=== PATIENT | female | born 1995 | race Caucasian/White ===

== ENCOUNTER 2019-12-25 08:29 | Outpatient (CLI) | payer BC ==
[2019-12-25] MEDS ORDERED: None at this Time (16:15)
[2019-12-29] MEDS ORDERED: FENTANYL PF 100 MCG/2ML ONE (11:56)
[2019-12-29] MEDS ORDERED: MIDAZOLAM 1 MG/ML, 2ML ONE (11:57)
== END 2019-12-25 23:59 | disposition home or self-care (01) ==
LOC: STAR 08:29
PROVIDERS: ATTEND Orthopaedic Surgery
DX: Z02.9 Encounter for administrative examinations, unspecified (principal)

== ENCOUNTER 2019-12-29 11:15 | Day surgery (SDC) | payer BC ==
[~2019-12-29] VITALS: Ht 167.6 cm; Wt 92.4 kg
[~2019-12-29 11:15] MED LIST: None at this Time
[2019-12-29] MEDS ORDERED: LACTATED RINGERS 1,000 ML IV SCH (11:42)
[2019-12-29] MEDS ORDERED: HYDR-3240 PO (11:47)
[2019-12-29] MEDS ORDERED: IBUPROFEN PO (11:47)
[2019-12-29] MEDS ORDERED: CHLORHEXIDINE 15 ML UDC MM ONE (12:00)
[2019-12-29 12:23] LABS: HCG UR SG 1.019 (1.003-1.030)
[2019-12-29] MEDS ORDERED: ROCURONIUM 10 MG/ML,10ML ONE (12:56)
[2019-12-29] MEDS ORDERED: SUCCINYLCHOLINE 20 MG/ML, 10ML ONE (12:56)
[2019-12-29] MEDS ORDERED: BUPIVACAINE/PF 0.5% ONE ×2 (13:15→14:17)
[2019-12-29] MEDS ORDERED: LIDOCAINE 1%, 20ML ONE (13:15)
[2019-12-29] MEDS ORDERED: CEFAZOLIN 1,000 MG ONE (14:17)
[2019-12-29] MEDS ORDERED: ONDANSETRON 2MG/ML, 2ML ONE (14:17)
[2019-12-29] MEDS ORDERED: PROPOFOL 10 MG/ML, 20ML ONE (14:17)
[2019-12-29] MEDS ORDERED: LIDOCAINE-MPF 2% ,5ML ONE ×2 (14:17)
[2019-12-29] MEDS ORDERED: DEXAMETHASONE 4 MG/ML, 1ML ONE (14:17)
[2019-12-29] MEDS ORDERED: FENTANYL PF 100 MCG/2ML ONE ×3 (14:21→16:52)
[2019-12-29] MEDS ORDERED: HYDROmorphone 1 MG/ML, 1ML INJ IVPush PRN (14:30)
[2019-12-29] MEDS ORDERED: PROMETHAZINE 25 MG/ML, 1ML IVPush PRN (14:30)
[2019-12-29] MEDS ORDERED: ACETAMINOPHEN 325 MG TABLET PO PRN (14:30)
[2019-12-29] MEDS ORDERED: LORazepam 2 MG/ML, 1ML IVPush PRN (14:30)
[2019-12-29] MEDS ORDERED: MEPERIDINE/PF 25MG/0.5ML IVPush PRN (14:30)
[2019-12-29] MEDS ORDERED: OXYcodone 5 MG/5 ML ORAL.SOL UDC PO PRN (14:30)
[2019-12-29] MEDS ORDERED: OXYcodone 5 MG/5 ML ORAL.SOL UDC ONE (16:17)
[2019-12-29] MEDS ORDERED: ACETAMINOPHEN 650 MG/20.3 ML UDC ONE (16:17)
[2019-12-29] MEDS: FENTANYL PF 100 MCG/2ML IV PRN ×2 (16:30→16:50)
== END 2019-12-29 18:40 | disposition home or self-care (01) ==
LOC: OUT 11:15
PROVIDERS: ATTEND Orthopaedic Surgery
DX: S82.851A Displaced trimalleolar fracture of right lower leg, initial encounter for closed fracture (principal); Z20.828 Contact with and (suspected) exposure to other viral communicable diseases; G89.18 Other acute postprocedural pain; E66.9 Obesity, unspecified; W01.0XXA Fall on same level from slipping, tripping and stumbling without subsequent striking against object, initial encounter; Y93.89 Activity, other specified; Y92.89 Other specified places as the place of occurrence of the external cause; Y99.8 Other external cause status
CPT/HCPCS: 27823; 36415; 64445; 64447; 73610; 76000; 81025; 87635; C1713; J0330; J0690; J1100; J2250; J2405; J2704; J3010; J7120